=== PATIENT | female | born 1955 | race Caucasian/White ===

== ENCOUNTER 2017-03-26 13:12 | Observation (INO) | payer BC ==
[2017-03-26] MEDS ORDERED: Ondansetron INJ* 2 MG/ML VIAL IV ONE ×2 (14:04→17:11)
[2017-03-26] MEDS ORDERED: Morphine INJ* 4 MG/ML 1 ML CARPUJECT IV ONE (14:04)
[2017-03-26 14:17] LABS: Hematocrit 43 % (35-47); Hemoglobin 14.2 g/dl (12.0-16.0); Mean Corpuscular HGB Conc 33 g/dl (31-36); Mean Corpuscular Hemoglobin 29 pg (27-31); Mean Corpuscular Volume 88 fL (80-97); Mean Platelet Volume 10 um3 (7.4-10.4); Red Blood Count 4.89 10^6/ul (4.0-5.4); Red Cell Distribution Width 13 % (10.5-15); White Blood Count 16.1 10^3/ul (3.5-10.8)
[2017-03-26 14:39] LABS: Albumin 4.5 g/dL (3.2-5.2); BUN/Creatinine Ratio 17.4 (8-20); Calcium 10.1 mg/dL (8.6-10.3); EGFR African American 79.3 (>60); EGFR Non-African American 61.7 (>60); Globulin 2.8 g/dL (2-4); Potassium 3.2 mmol/L (3.5-5.0); Total Bilirubin 1.2 mg/dL (0.2-1.0); Total Protein 7.3 g/dL (6.4-8.9)
[2017-03-26 14:43] LABS: Urine Bacteria Absent (Absent); Urine Bilirubin Negative (Negative); Urine Glucose Negative (Negative); Urine Nitrite Negative (Negative)
[2017-03-26] MEDS ORDERED: Iohexol 300* (CONTRAST) 10 ML SDV IV ONE (15:47)
[2017-03-26] MEDS: KCL 10 MEQ/50 ML IVPREMIX* 10 MEQ/50 ML BAG IV SCH ×2 (16:53→18:58)
--- NOTE | 2017-03-26 17:09 | RAD ---
INDICATION: Right lower quadrant pain COMPARISON: None TECHNIQUE: Axial source images were obtained from the hemidiaphragms to the symphysis pubis following administration of oral and intravenous contrast. 111 mL Omnipaque 300 was utilized. Coronal and sagittal reconstructed images were acquired. Lung bases: There is mild left basilar atelectasis or scarring. Liver: The liver is normal in size. There are no masses. There is mild intrahepatic ductal dilatation which may be related to postcholecystectomy state. Gallbladder: Cholecystectomy. Spleen: The spleen is normal in size. There are no masses. Pancreas: There is no focal pancreatic mass or ductal dilatation. Adrenal glands: There is no evidence of adrenal mass. Kidneys: There is right-sided perinephric stranding. The right kidney is larger than the left. There is mild right-sided hydronephrosis and moderate right-sided hydroureter ureter down to the right UVJ. There is probably a 4 mm right UVJ calculus.. There is scant contrast within the bladder near the UVJ which renders this examination is slightly less less sensitive in detecting urinary calcifications. There are no additional apparent calcifications. Of urinary significance. There is prompt excretion on the left. There is no evidence of a renal mass. Adenopathy: There is no evidence of adenopathy by size criteria. Fluid collections: There are no free or localized fluid collections. Vessels:There are no significant atherosclerotic changes involving the aorta. There is no focal aneurysm. The iliac vessels are normal in caliber. The IVC appears normal. GI tract: There are no acute CT bowel findings. There is no obstruction. The stomach and small bowel appear normal. The lower GI tract is normal. The cecum, ileocecal valve, and terminal ileum appear normal. The appendix is visualized and appear normal. Pelvic organs: The uterus and adnexa appear normal Bladder: There are no bladder masses. Abdominal and pelvic soft tissues: The extraperitoneal abdominal and pelvic soft tissues appear normal.. Osseous structures: There are no acute osseous findings. Other: None IMPRESSION: RIGHT-SIDED HYDRONEPHROSIS PRESUMABLY SECONDARY TO A 4 MM RIGHT UVJ CALCULUS
[2017-03-26] MEDS ORDERED: Ketorolac INJ* 30 MG/ML 1 ML VIAL IM ONE (17:11)
[2017-03-26] MEDS ORDERED: Ketorolac INJ* 30 MG/ML 1 ML VIAL IV PUSH ONE (17:26)
[2017-03-26] MEDS ORDERED: Tamsulosin CAP* 0.4 MG PO ONE (17:28)
[2017-03-26] MEDS ORDERED: Acetaminophen TAB* 325 MG PO PRN (18:29)
[2017-03-26] MEDS ORDERED: Morphine INJ* 2 MG/ML 1 ML SYRINGE (TWO MG - NEW SYRINGE VERSION) IV PRN (18:29)
[2017-03-26] MEDS ORDERED: Ondansetron INJ* 2 MG/ML VIAL IV PRN (18:29)
[2017-03-26] MEDS ORDERED: NS 0.9% 1000 ML* 1,000 ML IV SCH (18:30)
[2017-03-26] MEDS ORDERED: cefTRIAXone VIAL(*) 1,000 MG in D5W 50 ML BAG* 50 ML IVPB SCH ×2 (18:30→21:00)
[2017-03-26] MEDS ORDERED: Ketorolac INJ* 15 MG/ML 1 ML VIAL IV PUSH PRN (22:59)
[2017-03-26] MEDS: NS 0.9% 1000 ML* 1,000 ML IV SCH (23:06)
[2017-03-26] MEDS ORDERED: Potassium Chlor TAB* 20 MEQ TAB.ER PO ONE (23:07)
[2017-03-26] MEDS: Heparin VIAL(*) 5000 UNITS/ML VIAL (FIVE THOUSAND) SUBCUT SCH (23:07)
--- NOTE | 2017-03-27 00:26 | HP ---
CC: Dr. Shen * HISTORY AND PHYSICAL: DATE OF ADMISSION: 03/26/17 CHIEF COMPLAINT: Abdominal pain. HISTORY OF PRESENT ILLNESS: The patient is a 61-year-old woman who said yesterday she started feeling pain in her abdomen for about 2 hours. Her daughter is a physician's occupational therapist assistants and thought it was a kidney stone based on her description. So, she made an appointment to see her primary care doctor today to have it evaluated. However, as the day progressed, the pain became significantly worse to a 10/10 in severity. It radiated from around her right back to her front. She started having vomiting with the pain. No fevers or chills. She eventually saw her primary care physician, who told her she needed to go to the emergency room. In the emergency room, she initially received morphine, which did not help, but eventually she received Toradol and the pain essentially resolved. A CAT scan showed a 4 mm stone causing some hydronephrosis. PAST MEDICAL HISTORY: Significant for CVA, Lyme disease, Buckner's palsy, and hypertension. PAST SURGICAL HISTORY: Significant for hysterectomy and cholecystectomy. CURRENT MEDICATIONS: 1. Vitamin D 2000 units daily. 2. Zestoretic /.5 one tablet daily. 3. Lipitor 10 mg every other day. 4. Aspirin 325 mg daily. FAMILY HISTORY: Mom at 84 of vascular dementia. Father at 63 of melanoma. SOCIAL HISTORY: No tobacco, alcohol, or recreational drug use. 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 She is and has 2 children. Her daughter, Annemarie Barcenas, is her healthcare proxy. REVIEW OF SYSTEMS: A 14-point review of systems was completed with the patient. All pertinent positives and negatives are in the history of present illness, otherwise it is negative. PHYSICAL EXAMINATION GENERAL: A very pleasant woman, lying in bed, in no acute distress. VITAL SIGNS: Temperature 97.8 degrees, heart rate 88 beats per minute, respiratory rate 18 breaths per minute, pulse ox 98%, and blood pressure 156/89. HEENT: Normocephalic and atraumatic. Pupils are equal, round, and reactive to light. Moist mucous membranes. NECK: Supple. No JVD, bruits, palpable thyroid, or lymphadenopathy. CHEST: Clear to auscultation and percussion bilaterally. CARDIOVASCULAR: S1 and S2 appreciated. ABDOMEN: Positive bowel sounds in all 4 quadrants. Soft, nontender, and nondistended. EXTREMITIES: No cyanosis, clubbing, or edema. +2 peripheral pulses bilaterally. NEUROLOGIC: Alert and oriented x3. Moves all extremities. SKIN: No rashes or abnormalities. LABORATORY DATA: White count 16.1, hemoglobin 14.2, hematocrit 43, platelets 249. Sodium is 138, potassium 3.2, chloride 101, CO2 27, BUN 16, creatinine 0.92 , glucose 120, total bili 1.20. Urinalysis is +1 wbc's, +2 rbc's, trace leukocyte esterase. Abdominal and pelvic CT was interpreted by Radiology as right-sided hydronephrosis presumably secondary to 4 mm right UVJ calculus. ASSESSMENT AND PLAN: 1. Nephrolithiasis with right-sided hydronephrosis. Hopefully, stone will pass on its own. We will hydrate the patient with normal saline at 100 cc an hour. Toradol 50 mg IV q.6 and morphine p.r.n. for pain. Zofran p.r.n. for nausea. Rocephin 1 g IV daily. Recheck at a.m. and hopefully, the patient will be able to be discharged as early as tomorrow morning. 2. Hypokalemia, replete and check again in a.m. 3. Hypertension. Blood pressure is somewhat high, we will restart blood pressure medications. 4. DVT prophylaxis. Heparin subcu. 5. The patient is a full code. TIME SPENT: Over 75 minutes were spent on this H and P, more than 40 minutes of which was spent in direct [id number] with the patient in evaluation, physical exam, counseling, and coordination of care. [id number]/[facility] #: [id number] MTDD
[2017-03-27] MEDS: NS 0.9% 1000 ML* 1,000 ML IV SCH (05:03)
[2017-03-27 05:05] LABS: Hematocrit 37 % (35-47); Hemoglobin 12.6 g/dl (12.0-16.0); Mean Corpuscular HGB Conc 34 g/dl (31-36); Mean Corpuscular Hemoglobin 30 pg (27-31); Mean Corpuscular Volume 87 fL (80-97); Mean Platelet Volume 10 um3 (7.4-10.4); Red Blood Count 4.26 10^6/ul (4.0-5.4); Red Cell Distribution Width 13 % (10.5-15); White Blood Count 7.9 10^3/ul (3.5-10.8)
[2017-03-27 05:19] LABS: BUN/Creatinine Ratio 14.3 (8-20); Calcium 8.4 mg/dL (8.6-10.3); EGFR African American 51.8 (>60); EGFR Non-African American 40.3 (>60); Potassium 3.7 mmol/L (3.5-5.0)
[2017-03-27] MEDS: Heparin VIAL(*) 5000 UNITS/ML VIAL (FIVE THOUSAND) SUBCUT SCH ×2 (05:48→13:33)
[2017-03-27] MEDS ORDERED: Lisinopril TAB* 10 MG PO SCH (09:00)
[2017-03-27] MEDS ORDERED: Lisinopril/HCTZ 20/12.5(NF) TAB PO SCH (09:00)
[2017-03-27] MEDS ORDERED: Hydrochlorothiazide TAB* 25 MG PO SCH (09:00)
--- NOTE | 2017-03-27 10:48 | RAD ---
HISTORY: Hydronephrosis COMPARISONS: CT dated March 26, 2017 TECHNIQUE: Multiple transverse and longitudinal ultrasound images were obtained of the kidneys and bladder using grayscale and color Doppler imaging. FINDINGS: RIGHT KIDNEY: The right kidney is normal in shape, size, contour, and echogenicity. Again noted is moderate pelvic caliectasis with right hydroureter. The right kidney measures 10.6 x 5.1 x 4.5 cm. LEFT KIDNEY: The left kidney is normal in shape, size, contour, and echogenicity. There is no hydronephrosis or nephrolithiasis. The left kidney measures 11.2 x 5.8 x 4.6 cm. BLADDER: The bladder is smooth in contour. Bilateral ureteral jets are identified. The prevoid bladder volume is 100 milliliters.. The postvoid bladder volume is 0 milliliters. AORTA AND IVC: No images are submitted of the vasculature. RETROPERITONEUM: Unremarkable. OTHER: There is a small amount of fluid within the hepatorenal recess. IMPRESSION: 1. PERSISTENT RIGHT HYDRONEPHROSIS. 2. NO POSTVOID RESIDUAL. 3. SMALL AMOUNT OF FLUID WITHIN THE HEPATORENAL RECESS.
[2017-03-27 12:38] VITALS: BP 130/61
--- NOTE | 2017-03-27 15:33 | ED ---
Heena Campbell Edward, scribed for Artem Montana MD on 03/26/17 at 1412 . Abdominal Pain/Female - HPI Summary HPI Summary: 60 y/o female presents to the ED c/o sudden onset, severe RLQ pain starting yesterday. The pain started in the R flank radiating to the RLQ. The pain lasted 2 hrs and resolved spontaneously. This morning at around 11:00 the pain reappeared. The pain is now diffusely in the RLQ, with mild back pain. Currently the pain is aggravated with ambulaDenies urinary symptoms. Sx total hysterectomy, gall bladder removal. Associated sx: nausea earlier today (not currently). Denies fever. - History of Current Complaint Chief Complaint: EDAbdPain Stated Complaint: LOWER RT ABD PAIN Time Seen by Provider: 03/26/17 13:55 Hx Obtained From: Patient Onset/Duration: Sudden Onset Timing: Constant Severity Currently: Severe Pain Intensity: 10 Pain Scale Used: 0-10 Numeric Location: Flank Radiates: Yes Radiates to: RLQ Aggravating Factor(s): Movement Alleviating Factor(s): Nothing Associated Signs and Symptoms: Positive: Nausea. Negative: Fever, Urinary Symptoms Allergies/Adverse Reactions: Allergies Allergy/AdvReac Type Severity Reaction Status Date / Time No Known Allergies Allergy Verified 10/11/15 23:00 Home Medications: Home Medications Aspirin TAB* [Aspirin 325 MG TAB*] 325 mg PO DAILY 03/26/17 [History Confirmed 03/26/17] Atorvastatin* [Lipitor*] 10 mg PO EVERY OTHER DAY 03/26/17 [History Confirmed ] Cholecalciferol TAB* [Vitamin D TAB*] 2,000 units PO DAILY 03/26/17 [History Confirmed 03/26/17] Lisinopril/HCTZ 20/12.5(NF) [Zestoretic 20/12.5(NF)] 1 tab PO DAILY 03/26/17 [ History Confirmed 03/26/17] PMH/Surg Hx/FS Hx/Imm Hx Previously Healthy: No Endocrine/Hematology History: Denies: Hx Diabetes Cardiovascular History: Reports: Hx Hypercholesterolemia, Hx Hypertension Denies: Hx Congestive Heart Failure, Hx Pacemaker/ICD Respiratory History: Denies: Hx Asthma History: Denies: Hx Dialysis, Hx Renal Disease Sensory History: Reports: Hx Contacts or Glasses Denies: Hx Hearing Aid Opthamlomology History: Reports: Hx Contacts or Glasses Psychiatric History: Denies: Hx Panic Disorder - Cancer History Hx Chemotherapy: No Hx Radiation Therapy: No - Surgical History Surgery Procedure, Year, and Place: RIO, HYSTERECTOMY, Infectious Disease History: No Infectious Disease History: Denies: Traveled Outside the [place] in Last 30 Days - Family History Known Family History: Positive: Other - brain aneurysm, parents - Social History Alcohol Use: Rare Substance Use Type: Reports: None Smoking Status (MU): Never Smoked Tobacco Review of Systems Constitutional: Negative Eyes: Negative ENT: Negative Cardiovascular: Negative Respiratory: Negative Positive: Abdominal Pain, Nausea Positive: flank pain Musculoskeletal: Negative Skin: Negative Neurological: Negative Psychological: Normal All Other Systems Reviewed And Are Negative: Yes Physical Exam - Summary Physical Exam Summary: VITAL SIGNS: Reviewed. GENERAL: ~Patient is a well-developed and nourished (MALE OR FEMALE) who is lying comfortable in the stretcher. ~Patient is not in any acute respiratory distress. HEAD AND FACE: No signs of trauma. ~No ecchymosis, hematomas or skull depressions. No sinus tenderness. EYES: PERRLA, EOMI x 2, No injected conjunctiva, no nystagmus. EARS: Hearing grossly intact. Ear canals and tympanic membranes are within normal limits. MOUTH: Oropharynx within normal limits. NECK: Supple, trachea is midline, no adenopathy, no JVD, no carotid bruit, no c- spine tenderness, neck with full ROM. CHEST: Symmetric, no tenderness at palpation LUNGS: Clear to auscultation bilaterally. No wheezing or crackles. CVS: Regular rate and rhythm, S1 and S2 present, no murmurs or gallops appreciated. ABDOMEN: Soft, R CVA tenderness. Positive RLQ tenderness. Mild guarding. No rebound. No signs of distention. No masses palpated. Bowel sounds are normal. EXTREMITIES: FROM in all major joints, no edema, no cyanosis or clubbing. NEURO: Alert and oriented x 3. No acute neurological deficits. Speech is normal and follows commands. SKIN: Dry and warm Triage Information Reviewed: Yes Vital Signs On Initial Exam: Initial Vitals Temp Pulse Resp BP Pulse Ox 97.3 F 63 22 195/92 99 03/26/17 13:36 03/26/17 13:36 03/26/17 13:36 03/26/17 13:36 03/26/17 13:36 Vital Signs Reviewed: Yes Diagnostics - Vital Signs Vital Signs Temp Pulse Resp BP Pulse Ox 03/26/17 13:36 97.3 F 63 22 195/92 99 - Laboratory Result Diagrams: 03/26/17 14:07 03/26/17 14:07 Lab Statement: Any lab studies that have been ordered have been reviewed, and results considered in the medical decision making process. - CT ABD/PELVIS CT CT Interpretation: Positive (See Comments) - RIGHT-SIDED HYDRONEPHROSIS PRESUMABLY SECONDARY TO A 4 MM RIGHT UVJ CALCULUS CT Interpretation Completed By: Radiologist - ED PHYSICIAN REVIEWS AND AGREES Re-Evaluation - Re-Evaluation 1 Re-Evaluation Time: 17:35 Comment: Discuss CT results, pain improved with toradol 2 Re-Evaluation Time: 18:30 Comment: discuss plan to admit Abdominal Pain Fem Course/Dx - Course Course Of Treatment: 60 y/o female presents to the ED c/o sudden onset, severe RLQ pain starting yesterday. The pain started in the R flank radiating to the RLQ. The pain lasted 2 hrs and resolved spontaneously. This morning at around 11 :00 the pain reappeared. The pain is now diffusely in the RLQ, with mild back pain. Currently the pain is aggravated with ambulaDenies urinary symptoms. Sx total hysterectomy, gall bladder removal. Associated sx: nausea earlier today ( not currently). Denies fever. ABD/PEL CT SHOWS RIGHT-SIDED HYDRONEPHROSIS PRESUMABLY SECONDARY TO A 4 MM RIGHT UVJ CALCULUS. Admitted to Dr. Mendez @ 18: 17. Test results are without significant abnormalities except WBC 16.1. Potassium 3.2 for which she was given potassium chloride. UA contaminated therefore the urine will be sent for urine culture. Since the pt has a kidney stone the pt was given IV fluids, morphine and toradol for pain. The pain continues intermittently, so I discussed the case with Dr. Irving. He recommends the pt be admitted for pain control and he will consult the pt in the morning. I spoke with Dr. Mendez who accepted the pt for admission. The pt is hemodynamically stable, A&Ox3. - Diagnoses Provider Diagnoses: Ureterolithiasis, Renal colic, Intractable pain - Provider Notifications Discussed Care Of Patient With: Karan Irving Time Discussed With Above Provider: 18:15 Instructed by Provider To: Admit As Inpatient Discharge - Discharge Plan Condition: Stable Disposition: ADMITTED TO [facility] Referrals: Marisela Shen MD [Primary Care Provider] - The documentation as recorded by the Heena rosado Edward accurately reflects the service I personally performed and the decisions made by , Artem Montana MD.
--- NOTE | 2017-03-27 20:44 | CONS ---
CONSULTATION NOTE: DATE OF CONSULT: 03/27/17 HISTORY OF PRESENT ILLNESS: I was asked by the hospitalist service to see this 61- year-old white female because of right renal colic and distal right ureteral calculus. Mrs Godwin presented to the emergency room last night with a one-day history of recurrent episodes of right flank and right lower quadrant pain. She did not have any fever or chills. Evaluation in the emergency room showed an elevated white count of 16,000. Urinalysis was positive for blood, trace esterase. Vital signs were normal, afebrile. She had a CT of the abdomen and pelvis with oral and IV contrast. There was mild- to-moderate right hydroureteronephrosis with a 4-mm calculus at the right ureterovesical junction. There were no other renal calculi seen and no other abnormalities noted. Because of the persistent pain which was difficult to control with IV pain medication, the patient was admitted for pain management and observation. After she received one dose of Toradol, her pain completely resolved. She had a good night and has had no recurrent episodes of colic. Her urine has been strained and no calculi passed. I saw her this morning for evaluation. She had a comfortable night. She has been pain free since her admission to the floor. Examination showed normal vital signs, minimal right CVA tenderness. Her blood work was repeated this morning and her white count was down to 7,900 with normal differential. Her serum creatinine was 1.3 compared to yesterday when it was 0.9. This is probably a reflection of the obstruction she had developed. Renal and full bladder ultrasound were done this morning. Persistent mild right hydronephrosis was noted. No calculi were seen and bilateral ureteral jets were noted. IMPRESSION: Recent episode of right renal colic secondary to a 4-mm calculus at the right UVJ. Good bilateral ureteral jets on ultrasound this morning, with resolution of the flank pain. Plan: It is likely that the calculus will pass spontaneously. She will be discharged this morning on p.o. pain medications as needed, and on tamsulosin. She is supposed to call the office if she has episodes of severe colic, fever, or she becomes dehydrated. She was also advised to strain her urine. I will see her back in follow up in my office next week, earlier if her symptoms recur. [id number]/[facility] #: [id number] MTDD
--- NOTE | 2017-03-28 02:12 | DS ---
CC: Dr. Shen; Dr. Irving * DISCHARGE SUMMARY: DATE OF ADMISSION: 03/26/17 DATE OF DISCHARGE: 03/27/17 ADMISSION DIAGNOSES: 1. Nephrolithiasis. 2. Hydronephrosis. DISCHARGE DIAGNOSES: 1. Nephrolithiasis. 2. Hydronephrosis. HOSPITAL COURSE: The patient is a 61-year-old woman who presented to [facility] with a chief complaint of pain in her abdomen. Please see H and P for further details. On CAT scan, the patient was found to have a right- sided 4 mm stone with moderate hydronephrosis. The patient was managed and previously hydrated, given IV Toradol and improved dramatically over the next day. Ultrasound showed no change in her hydronephrosis, but clinically she was significantly improved and was anxious to go home. Discussion was had with Urology, who agreed the patient to go home and follow up with them within 1 to 2 weeks. PHYSICAL EXAMINATION: On the date of discharge, well-developed, well-nourished woman, sitting up in bed, in no acute distress. Vital Signs: Temperature 97.9 degrees, heart rate 57 beats per minute, respiratory rate 16 breaths per minute , pulse ox 95%, blood pressure 130/61. HEENT: Normocephalic, atraumatic. Pupils equal, round, and reactive to light. Moist mucous membranes. Neck is supple. No JVD, bruits, palpable thyroid or lymphadenopathy. Chest: Clear to auscultation and percussion bilaterally. Cardiovascular Exam: S1 and S2 appreciated. Abdominal Exam: Positive bowel sounds in all 4 quadrants. Soft, nontender and nondistended. Extremities: No cyanosis, clubbing, or edema. +2 peripheral pulses bilaterally. Neuro: Alert and oriented x3. Moves all extremities. Skin: No rashes or abnormalities. STUDIES DONE WHILE IN THE HOSPITAL: Abdominopelvic CT, interpretation by Radiology shows right-sided hydronephrosis presumably secondary to 4 mm right UVJ calculus. Abdominal bladder ultrasound persistent right hydronephrosis. No postvoid residual. Small amount of fluid within the hepatorenal recess. DISCHARGE MEDICATIONS: 1. Cholecalciferol 2000 units daily. 2. Lisinopril and hydrochlorothiazide 20/12.5 one tablet daily. 3. Lipitor 10 mg every other day. 4. Aspirin 325 mg daily. 5. Flomax 0.4 mg at bedtime. 6. Toradol 10 mg every 6 hours as needed for pain. DISCHARGE PLAN: The patient is discharged home. She will follow up with PCP within 1 week. Follow up with Urology within 1 to 2 weeks. The patient will return to the ER if symptoms recur. TIME SPENT: Over 35 minutes were spent on this discharge, more than 20 minutes of which were spent in direct [id number] contact with the patient in evaluation, physical exam, counseling, and coordination of care. [id number]/[facility] #: [id number] MTDD
== END 2017-03-27 15:00 | disposition home or self-care (01) ==
LOC: ED 13:12 → SSU 18:29
PROVIDERS: ADMIT Internal Medicine; ATTEND Internal Medicine
DX: N13.2 Hydronephrosis with renal and ureteral calculous obstruction (principal); E87.6 Hypokalemia; I10 Essential (primary) hypertension; E78.00 Pure hypercholesterolemia, unspecified; Z79.899 Other long term (current) drug therapy; Z79.82 Long term (current) use of aspirin
CPT/HCPCS: 36415; 74177; 76770; 80048; 80053; 81003; 81015; 83690; 85025; 86141; 87077; 87086; 96365; 96372; 96375; 96376; 99285; A9270-GY; G0378; J0696; J1644; J1885; J2270; J2405; J3480; Q9967